=== PATIENT | female | born 1955 | race Caucasian/White ===

== ENCOUNTER 2019-10-20 07:27 | Emergency (ER) | payer MEDICARE ==
[~2019-10-20] VITALS: Ht 154.9 cm; Wt 54.7 kg
[2019-10-20 07:33] VITALS: BP_DIAS 100
--- NOTE | 2019-10-20 07:59 | NUR ---
THIS IS A 64 YEAR OLD FEMALE WHO C/O OF "TINGLING ON MY FACE AND MY RIGHT ARM, LIGHTHEADED, SOB" ONSET 0600. EQUAL HAND GRASP, NO ARM DRIFT, SMILE SYMMETRICAL, SPEECH CLEAR
--- NOTE | 2019-10-20 08:10 | NUR ---
PT PLACED ON CARDIAC MONTIOR TACY AT 106, CONTINOUS SP02 AT 99%, AND CYCLE VS. PT TO CT SCAN VIA GURNEY
[2019-10-20 08:17] LABS: BASOPHILS # (AUTO) 0.03 x10^3/uL (0-0.1); BASOPHILS % (AUTO) 1 % (0-1); EOSINOPHILS # (AUTO) 0.02 x10^3/uL (0-0.4); EOSINOPHILS % (AUTO) 0 % (1-7); LYMPHOCYTES # (AUTO) 1.72 x10^3/uL (1-3.4); LYMPHOCYTES % (AUTO) 24 % (22-44); MD NO; MEAN CORPUSCULAR HEMOGLOBIN 30.2 pg (27.0-34.8); MEAN CORPUSCULAR HGB CONC 33.2 g/dL (32.4-35.8); MONOCYTES # (AUTO) 0.38 x10^3/uL (0.2-0.8); MONOCYTES % (AUTO) 5 % (2-9); NEUTROPHILS # (AUTO) 5.06 x10^3/uL (1.8-6.8); NEUTROPHILS % (AUTO) 70 % (42-75); PLATELET COUNT 377 x10^3/uL (130-400); RED BLOOD COUNT 5.17 x10^6/uL (3.82-5.3); RED CELL DISTRIBUTION WIDTH 13.3 % (9.6-15.2)
[2019-10-20 08:28] LABS: ANION GAP 7 mmol/L (5-15); CALCIUM 8.8 mg/dL (8.5-10.1); CHLORIDE 105 mmol/L (98-107)
[2019-10-20 08:33] LABS: CREATININE 0.83 mg/dL (0.55-1.02); TROPONIN I < 0.015 ng/mL (0.000-0.045)
--- NOTE | 2019-10-20 09:37 | NUR ---
Patient/Caregiver given discharge instructions and they have confirmed that they understand the instructions. Patient ambulatory with steady gait.
[2019-10-20 09:39] VITALS: BP_SYST 145
== END 2019-10-20 09:41 | disposition home or self-care (01) ==
LOC: ED 09:35
DX: R20.2 Paresthesia of skin (principal); M54.12 Radiculopathy, cervical region; R06.02 Shortness of breath; R44.9 Unspecified symptoms and signs involving general sensations and perceptions
CPT/HCPCS: 36415; 70450; 72050; 80048; 82040; 84484; 85025; 93005; 99284